=== PATIENT | female | born 1995 | race Caucasian/White ===

== ENCOUNTER 2018-08-31 18:22 | Emergency (ER) | payer OTHER ==
[2018-08-31] MEDS ORDERED: traMADol HCl 50 MG TAB ONE (19:11)
[2018-08-31] MEDS ORDERED: Clindamycin 150 MG CAP ONE (19:12)
== END 2018-08-31 19:21 | disposition home or self-care (01) ==
LOC: NAV ERS 18:22
DX: K04.7 Periapical abscess without sinus (principal); F41.9 Anxiety disorder, unspecified; F31.9 Bipolar disorder, unspecified; F17.210 Nicotine dependence, cigarettes, uncomplicated; Z79.899 Other long term (current) drug therapy
CPT/HCPCS: 99282

== ENCOUNTER 2018-10-12 22:36 | Emergency (ER) | payer OTHER ==
[2018-10-12] MEDS ORDERED: Lidocaine 1% (PF) 30 ML VIAL ONE (23:05)
[2018-10-12] MEDS ORDERED: Adacel (T-DAP) 0.5 ML SYRINGE ONE (23:07)
[2018-10-12] MEDS ORDERED: Lidocaine 1% w/Epinephrine 1:100K 30 ML VIAL ONE (23:24)
[2018-10-13] MEDS ORDERED: Clindamycin 150 MG CAP ONE (00:03)
== END 2018-10-13 00:20 | disposition home or self-care (01) ==
LOC: NAV ERS 22:36
DX: L02.412 Cutaneous abscess of left axilla (principal); F41.9 Anxiety disorder, unspecified; F32.9 Major depressive disorder, single episode, unspecified; F17.210 Nicotine dependence, cigarettes, uncomplicated
CPT/HCPCS: 10060; 87070; 87077; 87186; 87205; 90471; 90715; J2001